=== PATIENT | female | born 1985 | race Caucasian/White ===

== ENCOUNTER 2019-11-17 12:24 | Emergency (ER) | payer SELFPAY ==
[~2019-11-17] VITALS: Ht 162.6 cm; Wt 75.0 kg
[~2019-11-17 12:24] MED LIST: DOCU100C33 PO; POLY238P2 PO
[2019-11-17] MEDS ORDERED: ACETAMINOPHEN 500 MG TABLET PO ONE (14:00)
[2019-11-17] MEDS ORDERED: BENZONATATE 100 MG CAPSULE PO ONE (14:00)
[2019-11-17 15:19] LABS: INFLUENZA TYPE A NEGATIVE FOR TYPE A (NEGATIVE); INFLUENZA TYPE B NEGATIVE FOR TYPE B (NEGATIVE)
[2019-11-17 15:31] VITALS: BP 133/67
== END 2019-11-17 16:09 | disposition home or self-care (01) ==
LOC: EMS 12:25
DX: J18.9 Pneumonia, unspecified organism (principal); Z88.0 Allergy status to penicillin
CPT/HCPCS: 87804

== ENCOUNTER 2021-04-25 18:45 | Emergency (ER) | payer MEDICAID ==
[~2021-04-25] VITALS: Ht 160 cm; Wt 100.0 kg
[2021-04-25 18:53] VITALS: BP 114/66
[2021-04-25] MEDS ORDERED: IBUPROFEN 600 MG TABLET PO ONE (21:30)
[2021-04-25] MEDS ORDERED: ACETAMINOPHEN 500 MG TABLET PO ONE (21:30)
== END 2021-04-25 22:00 | disposition home or self-care (01) ==
LOC: EMS 18:47
DX: G44.209 Tension-type headache, unspecified, not intractable (principal); Z88.0 Allergy status to penicillin; Z20.822 Contact with and (suspected) exposure to COVID-19
CPT/HCPCS: 99283; U0003

== ENCOUNTER 2021-09-05 23:15 | Inpatient (IN) | payer MEDICAID ==
[~2021-09-05] VITALS: Ht 160 cm; Wt 77.3 kg
[2021-09-06 00:06] LABS: BASOPHILS % (AUTO) 0.5 % (0.0-2.0); EOSINOPHILS % (AUTO) 0.8 % (1.0-6.0); HEMATOCRIT 40.1 % (36-46); HEMOGLOBIN 13.6 g/dL (12.0-16.0); LYMPHOCYTES # (AUTO) 1.7 K/uL (1.0-4.8); LYMPHOCYTES % (AUTO) 13.9 % (22.0-44.0); MEAN CORPUSCULAR HEMOGLOBIN 26.6 pg (26.0-34.0); MEAN CORPUSCULAR VOLUME 78 fL (80-100); MONOCYTES # (AUTO) 0.4 K/uL (0.1-1.0); NEUTROPHILS # (AUTO) 9.8 K/uL (1.8-7.7); NEUTROPHILS % (AUTO) 81.8 % (40.0-70.0); PLATELET COUNT (AUTO) 355 K/uL (150-450); RED BLOOD CELL COUNT(AUTO) 5.11 MIL/uL (4.00-5.20); RED CELL DISTRIBUTION WIDTH 12.2 % (11.5-14.5)
[2021-09-06 00:09] LABS: APPEARANCE,URINE CLEAR (CLEAR); BILIRUBIN,URINE NEGATIVE (NEGATIVE); GLUCOSE, URINE (UA) NEGATIVE (NEGATIVE); KETONES,URINE NEGATIVE (NEGATIVE); LEUKOCYTE ESTERASE ,URINE SMALL (NEGATIVE); NITRATE,URINE NEGATIVE (NEGATIVE); OCCULT BLOOD,URINE NEGATIVE (NEGATIVE); PH,URINE 8.5 (5.0-8.0); PROTEIN,URINE POS 1+ (NEGATIVE); UROBILINOGEN,URINE 0.2 mg/dL (<=1.0)
[2021-09-06 00:10] LABS: BACTERIA,URINE Moderate /HPF (None Seen); RBC,URINE 0-2 /HPF (0-2)
[2021-09-06 00:10] LABS: ANION GAP 1 mmol/L (8-16); CARBON DIOXIDE 36 mmol/L (22-29); CHLORIDE 102 mmol/L (98-107); CREATININE 0.69 mg/dL (0.60-1.30); GLOMERULAR FILTR. RATE CALC > 60 mL/min (>60); GLUCOSE,RANDOM 122 mg/dL (70-110); POTASSIUM 3.9 mmol/L (3.5-5.1); SODIUM SERUM 139 mmol/L (136-145); UREA NITROGEN, BLOOD 10 mg/dL (7-18)
[2021-09-06 00:21] LABS: ALANINE AMINOTRANSFERASE 23 U/L (12-78); ALBUMIN 4.1 g/dL (3.4-5.0); ALKALINE PHOSPHATASE 87 U/L (46-116); ASPARTATE AMINOTRANSFERASE 17 U/L (15-37); BILIRUBIN,TOTAL 0.3 mg/dL (0.1-1.0); HCG,QUANTITATIVE < 1 mIU/mL (0-6); LIPASE 91 U/L (73-393); TOTAL PROTEIN, SERUM 8.4 g/dL (6.4-8.2)
[2021-09-06] MEDS ORDERED: IOHEXOL 350 MG/ML 100 ML VIAL ONE (00:50)
[2021-09-06] MEDS ORDERED: SODIUM CHLORIDE 0.9% 100 ML ONE (00:50)
[2021-09-06] MEDS ORDERED: SODIUM CHLORIDE 0.9% 2,000 ML IV ONE (01:00)
[2021-09-06] MEDS ORDERED: HYDROmorphone 2 MG/ML VIAL IVP ONE ×2 (01:00→05:15)
[2021-09-06] MEDS ORDERED: BARIUM SULFATE 0.1% SUSPENSION 450 ML BOTTLE PO ONE (01:00)
[2021-09-06] MEDS ORDERED: ONDANSETRON HCL 4 MG/2 ML VIAL IVP ONE (01:00)
[2021-09-06] MEDS ORDERED: SODIUM CHLORIDE 0.9% 1,000 ML IV ONE ×2 (05:15→23:15)
[2021-09-06] MEDS ORDERED: ONDANSETRON HCL 4 MG/2 ML VIAL IVP PRN (05:45)
[2021-09-06] MEDS ORDERED: ACETAMINOPHEN 325 MG TABLET PO PRN (05:45)
[2021-09-06] MEDS ORDERED: KETOROLAC TROMETHAMINE 15 MG/ML VIAL IVP PRN (05:45)
[2021-09-06] MEDS ORDERED: LEVOFLOXACIN 500 MG/D5% WATER 100 ML IV SCH (06:00)
[2021-09-06] MEDS ORDERED: SODIUM PHOS/SODIUM BIPHOS 133 ML ENEMA PR ONE (06:15)
[2021-09-06 06:48] LABS: COVID AG,FIA SOURCE NASOPHARYNGEAL
[2021-09-06] MEDS: HYDROmorphone 2 MG/ML VIAL IVP PRN ×2 (07:10→13:27)
[2021-09-06] MEDS: FAMOTIDINE 10 MG/ML 2 ML VIAL IVP SCH ×2 (07:10→22:24)
[2021-09-06] MEDS: HEPARIN SODIUM,PORCINE 5,000 UNITS/ML VIAL SQ SCH ×2 (07:51→15:05)
[2021-09-06] MEDS ORDERED: METOCLOPRAMIDE HCL 5 MG/ML 2 ML VIAL IVP PRN (14:30)
[2021-09-06 18:20] VITALS: BP 118/70
[2021-09-06 19:50] VITALS: BP 112/67
[2021-09-06] MEDS ORDERED: SODIUM CHLORIDE 0.45% 1,000 ML IV ONE (23:15)
[2021-09-07 03:45] VITALS: BP 123/78
[2021-09-07 07:56] VITALS: BP 125/72
[2021-09-07] MEDS: HEPARIN SODIUM,PORCINE 5,000 UNITS/ML VIAL SQ SCH ×3 (08:34→16:19)
[2021-09-07] MEDS: FAMOTIDINE 10 MG/ML 2 ML VIAL IVP SCH (08:34)
[2021-09-07 16:14] VITALS: BP 121/80
== END 2021-09-07 18:15 | disposition home or self-care (01) | DRG 247 ==
LOC: EMS 23:17 → 6N 09-06 17:09
PROVIDERS: ADMIT Internal Medicine; ATTEND Internal Medicine
DX: K56.600 Partial intestinal obstruction, unspecified as to cause (principal); E87.3 Alkalosis; E66.9 Obesity, unspecified; Z90.49 Acquired absence of other specified parts of digestive tract; Z98.51 Tubal ligation status; Z68.30 Body mass index [BMI] 30.0-30.9, adult; Z88.0 Allergy status to penicillin; Z79.899 Other long term (current) drug therapy
CPT/HCPCS: 71045; 74018; 74177; 80053; 81001; 83690; 84702; 85025; 87086; 99285; J1170; J1644; J1885; J1956; J2405; J2765; J3490; J7030; J7050; Q9967; 36415-L1; 36415-TC

== ENCOUNTER 2024-05-14 14:55 | Inpatient (IN) | payer OTHER ==
[~2024-05-14] VITALS: Ht 157.5 cm; Wt 86.4 kg
[~2024-05-14 14:55] MED LIST changes: -DOCU100C33 PO; +ONDA-104 PO; -POLY238P2 PO
[2024-05-14] MEDS: MORPHINE SULFATE 4 MG/ML SYRINGE IVP ONE (15:36)
[2024-05-14] MEDS: ONDANSETRON HCL 4 MG/2 ML VIAL IVP ONE (15:36)
[2024-05-14 15:43] LABS: BASOPHILS % (AUTO) 0.4 % (0.0-2.0); EOSINOPHILS % (AUTO) 0.5 % (1.0-6.0); HEMATOCRIT 40.6 % (36-46); HEMOGLOBIN 13.3 g/dL (12.0-16.0); LYMPHOCYTES # (AUTO) 1.7 K/uL (1.0-4.8); LYMPHOCYTES % (AUTO) 13.4 % (22.0-44.0); MEAN CORPUSCULAR HEMOGLOBIN 26.8 pg (26.0-34.0); MEAN CORPUSCULAR HGB CONC 32.9 G/dL (31.0-37.0); MEAN CORPUSCULAR VOLUME 81 fL (80-100); MONOCYTES # (AUTO) 0.5 K/uL (0.1-1.0); MONOCYTES % (AUTO) 3.6 % (2.0-9.0); NEUTROPHILS # (AUTO) 10.6 K/uL (1.8-7.7); NEUTROPHILS % (AUTO) 82.1 % (40.0-70.0); PLATELET COUNT (AUTO) 287 K/uL (150-450); RED BLOOD CELL COUNT(AUTO) 4.98 MIL/uL (4.00-5.20); RED CELL DISTRIBUTION WIDTH 13.4 % (11.5-14.5); WHITE BLOOD COUNT (AUTO) 12.9 K/uL (4.5-11.0)
[2024-05-14 15:51] LABS: ANION GAP 12 mmol/L (8-16); CALCIUM, TOTAL 8.6 mg/dL (8.8-10.5); CARBON DIOXIDE 26 mmol/L (22-29); CHLORIDE 102 mmol/L (98-107); CREATININE 0.57 mg/dL (0.60-1.30); GLOMERULAR FILTR. RATE CALC > 60 mL/min (>60); GLUCOSE,RANDOM 115 mg/dL (70-110); POTASSIUM 3.9 mmol/L (3.5-5.1); SODIUM SERUM 140 mmol/L (136-145); UREA NITROGEN, BLOOD 9 mg/dL (7-18)
[2024-05-14 16:04] LABS: ALANINE AMINOTRANSFERASE 35 U/L (12-78); ALBUMIN 3.7 g/dL (3.4-5.0); ALKALINE PHOSPHATASE 89 U/L (46-116); ASPARTATE AMINOTRANSFERASE 22 U/L (15-37); BILIRUBIN,TOTAL 0.5 mg/dL (0.1-1.0); HCG,QUANTITATIVE < 1 mIU/mL (0-6); LIPASE 32 U/L (16-77); TOTAL PROTEIN, SERUM 7.4 g/dL (6.4-8.2)
[2024-05-14] MEDS: HYDROmorphone HCL 2 MG/ML SYRINGE IVP ONE ×3 (16:47→20:13)
[2024-05-14] MEDS ORDERED: SODIUM CHLORIDE 0.9% 100 ML ONE (17:24)
[2024-05-14] MEDS ORDERED: IOHEXOL 350 MG/ML 100 ML VIAL ONE (17:24)
[2024-05-14] MEDS ORDERED: 0.9% SODIUM CHLORIDE 10 ML SYRINGE IVP ONE (17:24)
[2024-05-14] MEDS ORDERED: ACETAMINOPHEN 325 MG TABLET PO PRN (19:00)
[2024-05-14] MEDS ORDERED: ONDANSETRON HCL 4 MG/2 ML VIAL IVP PRN (19:00)
[2024-05-14] MEDS: SODIUM CHLORIDE 0.9% 1,000 ML IV SCH (20:14)
[2024-05-14] MEDS: SODIUM CHLORIDE 0.9% 1,000 ML IV ONE (20:14)
[2024-05-14] MEDS: DOCUSATE SODIUM 100 MG CAPSULE PO SCH (20:22)
[2024-05-14] MEDS: HYDROmorphone HCL 2 MG/ML SYRINGE IVP PRN (22:42)
[2024-05-15] MEDS: MORPHINE SULFATE 4 MG/ML SYRINGE IVP ONE (06:59)
[2024-05-15] MEDS: PANTOPRAZOLE SODIUM 40 MG/VIAL IVP SCH (08:40)
[2024-05-15 08:52] LABS: APPEARANCE,URINE CLEAR (CLEAR); BILIRUBIN,URINE NEGATIVE (NEGATIVE); COLOR,URINE YELLOW (YELLOW); GLUCOSE, URINE (UA) NEGATIVE (NEGATIVE); LEUKOCYTE ESTERASE ,URINE NEGATIVE (NEGATIVE); NITRATE,URINE NEGATIVE (NEGATIVE); OCCULT BLOOD,URINE NEGATIVE (NEGATIVE); PROTEIN,URINE 30-70 mg/dL (NEGATIVE); SPECIFIC GRAVITIY, URINE 1.035 (1.003-1.030); UROBILINOGEN,URINE <=1.0 mg/dL (<=1.0)
[2024-05-15 11:16] VITALS: BP 122/80; PULSE 73; RESP 17; TEMP 98.5; O2SAT 96
[2024-05-15 11:40] VITALS: BP 122/80; PULSE 73; RESP 17; TEMP 98.5
[2024-05-15] MEDS: DiphenhydrAMINE HCL 50 MG/ML VIAL IVP PRN (13:14)
[2024-05-15] MEDS: MORPHINE SULFATE 2 MG/ML SYRINGE IVP PRN (18:36)
[2024-05-15 19:46] VITALS: BP 118/77; PULSE 81; RESP 18; TEMP 98.3; O2SAT 97
[2024-05-16 05:09] VITALS: BP 112/60; PULSE 76; RESP 18; TEMP 98.2; O2SAT 100
[2024-05-16 07:59] VITALS: BP 125/72; PULSE 72; RESP 18; TEMP 97.9; O2SAT 97
[2024-05-16 16:39] LABS: BASOPHILS % (AUTO) 0.5 % (0.0-2.0); EOSINOPHILS % (AUTO) 2.3 % (1.0-6.0); HEMATOCRIT 38.2 % (36-46); HEMOGLOBIN 12.6 g/dL (12.0-16.0); LYMPHOCYTES # (AUTO) 2.6 K/uL (1.0-4.8); LYMPHOCYTES % (AUTO) 31.1 % (22.0-44.0); MEAN CORPUSCULAR HGB CONC 32.9 G/dL (31.0-37.0); MEAN CORPUSCULAR VOLUME 82 fL (80-100); MONOCYTES # (AUTO) 0.5 K/uL (0.1-1.0); NEUTROPHILS % (AUTO) 60.1 % (40.0-70.0); PLATELET COUNT (AUTO) 257 K/uL (150-450); RED BLOOD CELL COUNT(AUTO) 4.65 MIL/uL (4.00-5.20); RED CELL DISTRIBUTION WIDTH 13.2 % (11.5-14.5); WHITE BLOOD COUNT (AUTO) 8.3 K/uL (4.5-11.0)
[2024-05-16 16:45] LABS: ANION GAP 8 mmol/L (8-16); CALCIUM, TOTAL 8.4 mg/dL (8.8-10.5); CARBON DIOXIDE 27 mmol/L (22-29); CHLORIDE 102 mmol/L (98-107); CREATININE 0.53 mg/dL (0.60-1.30); GLOMERULAR FILTR. RATE CALC > 60 mL/min (>60); GLUCOSE,RANDOM 78 mg/dL (70-110); POTASSIUM 3.6 mmol/L (3.5-5.1); SODIUM SERUM 137 mmol/L (136-145); UREA NITROGEN, BLOOD 6 mg/dL (7-18)
[2024-05-16 16:52] LABS: ALANINE AMINOTRANSFERASE 57 U/L (12-78); ALBUMIN 3.3 g/dL (3.4-5.0); ALKALINE PHOSPHATASE 77 U/L (46-116); ASPARTATE AMINOTRANSFERASE 32 U/L (15-37); BILIRUBIN,TOTAL 0.6 mg/dL (0.1-1.0); TOTAL PROTEIN, SERUM 6.8 g/dL (6.4-8.2)
[2024-05-16 19:28] VITALS: BP 113/74; PULSE 77; RESP 18; TEMP 98.7; O2SAT 96
[2024-05-17 05:00] VITALS: BP 120/67; PULSE 67; RESP 18; TEMP 98.1; O2SAT 95
[2024-05-17 09:12] VITALS: BP 111/71; PULSE 90; RESP 16; TEMP 98.6; O2SAT 97
[2024-05-17] MEDS ORDERED: DOCU-385 PO (10:24)
== END 2024-05-17 10:30 | disposition home or self-care (01) | DRG 247 ==
LOC: EMS 14:55 → EDH 20:12 → 6N 05-15 10:55
PROVIDERS: ADMIT Internal Medicine; ATTEND Internal Medicine
DX: K56.609 Unspecified intestinal obstruction, unspecified as to partial versus complete obstruction (principal); D72.829 Elevated white blood cell count, unspecified; E66.9 Obesity, unspecified; K56.7 Ileus, unspecified; Z68.34 Body mass index [BMI] 34.0-34.9, adult; Z80.0 Family history of malignant neoplasm of digestive organs; Z88.0 Allergy status to penicillin; Z90.49 Acquired absence of other specified parts of digestive tract
CPT/HCPCS: 74018; 74177; 80048; 80053; 80076; 81003; 83605; 83690; 84702; 85025; 99285; C9113; G0378; J1170; J1200; J2270; J2405; J7030; J7050; 36415-L1; 36415-TC